=== PATIENT | male | born 1975 | race Caucasian/White ===

== ENCOUNTER 2017-04-11 09:51 | Emergency (ER) | payer OTHER ==
--- NOTE | 2017-04-11 12:01 | DIAGNOSTIC IMAGING REPORT ---
PROCEDURE: XR HAND 3 OR 4 VIEWS - LEFT INDICATION: Trauma. Injury. History of achondroplasia. TECHNIQUE: Four views. COMPARISON: Comparison is made to radiographs of the left hand third finger on 12/13/2014. FINDINGS: Shortening of the phalanges and distal radius/ulna may be a reflection of achondroplasia. Osseous structures and joint spaces are otherwise normal. No evidence of acute process or fracture. IMPRESSION: 1. Negative left hand.
--- NOTE | 2017-04-11 13:55 | DIAGNOSTIC IMAGING REPORT ---
PROCEDURE: XR LUMBAR SPINE 2 OR 3 VIEWS INDICATION: Trauma. Injury. Achondroplasia. TECHNIQUE: Three views. COMPARISON: None. FINDINGS: There are minimal old wedge compression deformities of the L1 and T12 vertebra which may be a reflection of achondroplasia. There are degenerative changes of the lower lumbar facet joints. Osseous structures and disc spaces are otherwise normal. No evidence of an acute process or fracture. IMPRESSION: 1. Negative lumbar spine.
--- NOTE | 2017-04-11 14:00 | DIAGNOSTIC IMAGING REPORT ---
PROCEDURE: XR THORACIC SPINE 3 VIEWS INDICATION: TRAUMA/INJURY TECHNIQUE: Three views. COMPARISON: None. FINDINGS: There is evidence of a multilevel laminectomy from T4-T11 (no change). Osseous structures and disc spaces are otherwise normal. No evidence of an acute process or fracture. IMPRESSION: 1. There is evidence of a multi level laminectomy from T4-T11 (no change). 2. Otherwise negative thoracic spine 3. Findings discussed with Dr. Christian.
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
--- NOTE | 2017-04-11 14:20 | ED ORDER SUMMARY ---
..... Patient: LULÚ VERA OrderSheet [facility] VisitID: [id number] [address] [place] [address] 41y, M Registration Date/Time: 04/11/2017 ORDER SHEET Weight: 63.5 kg (stated) Allergies: No Known Drug Allergy GENERAL ORDERS: Hand 3 or 4V Left Urgent (11:29 04/11/2017 Gage AARON) (Ack 11:31 Ailyn) (11:50 Ailyn) Dress Wounds (11:04/11/2017 Gage AARON) (Ack 11:32 Ailyn) (11:36 MWinterer R.N.) Thoracic Spine 3V Urgent (12:04/11/2017 Gage AARON) (Ack 12:08 Ailyn) (14:04 MWinterer R.N.) Lumbar Spine 2 or 3V Urgent (12:04/11/2017 Gage AARON) (Ack 12:08 Ailyn) (14:04 MWinterer R.N.) MEDICATION ORDERS: Tdap IM 0.5 mL (NOW) (11:04/11/2017 Gage AARON) (11:37 MWinterer R.N.) IV FLUIDS: ORDER SHEET NOTES: [Electronically signed by Laurita Singleton R.N. (14:41 04/11/2017)] [Electronically signed by Sherif Christian MD (18:08 04/11/2017)] [Electronically locked/signed by Laurita Singleton R.N. (14:41 04/11/2017)]
--- NOTE | 2017-04-11 14:20 | ED ORDER SUMMARY ---
..... Patient: LULÚ VREA OrderSheet [facility] VisitID: [id number] [address] [place] [address] 41y, M Registration Date/Time: 04/11/2017 ORDER SHEET Weight: 63.5 kg (stated) Allergies: No Known Drug Allergy GENERAL ORDERS: Hand 3 or 4V Left Urgent (11:29 04/11/2017 Gage AARON) (Ack 11:31 Ailyn) (11:50 Ailyn) Dress Wounds (11:04/11/2017 Gage AARON) (Ack 11:32 Ailyn) (11:36 MWinterer R.N.) Thoracic Spine 3V Urgent (12:04/11/2017 Gage AARON) (Ack 12:08 Ailyn) (14:04 MWinterer R.N.) Lumbar Spine 2 or 3V Urgent (12:04/11/2017 Gage AARON) (Ack 12:08 Ailyn) (14:04 MWinterer R.N.) MEDICATION ORDERS: Tdap IM 0.5 mL (NOW) (11:04/11/2017 Gage AARON) (11:37 MWinterer R.N.) IV FLUIDS: ORDER SHEET NOTES: [Electronically signed by Laurita Singleton R.N. (14:41 04/11/2017)] [Electronically signed by Sherif Christian MD (18:08 04/11/2017)] [Electronically locked/signed by Laurita Singleton R.N. (14:41 04/11/2017)]
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
--- NOTE | 2017-04-11 18:08 | ED DISCHARGE INSTRUCTIONS ---
Patient: LULÚ VERA General Instructions [facility] VisitID: [id number] [address] [place] [address] 41y, M Registration Date/Time: 04/11/2017 Single deep laceration to the lower lip.No foreign body present. Multiple contusions with abrasion to the forehead, nose, lower lip and left hand. Fall from chair and on same level by slipping. Lower leg paresthesia. Tooth avulsion. INSTRUCTIONS Apply ice for 15-20 minutes three times a day for one days. (to left hand.). Protect wound and keep wound area clean. Change dressing twice daily. Keep wounds dry. You may wash wounds briefly, then dry. Apply neosporin twice daily. No strenuous activity. No alcohol. Do not smoke. (Liquid diet for 1 week. Rinse mouth after every meal . No chewing tobacco. Follow up with neurologist if leg numbness persists.). Warnings: HEAD INJURY PRECAUTIONS: An observer must check on the patient every 4 hours for the next 24 hours to confirm that the patient responds as expected, is not confused, has no new weakness or numbness, and has no other problems. TETANUS: You were given a tetanus shot during your visit. Make a note for future reference. GENERAL WARNINGS: Return or contact your physician immediately if your condition worsens or changes unexpectedly, if not improving as expected, or if other problems arise. Your Current Medications: CONTINUE TAKING THE FOLLOWING MEDICATIONS: Benadryl Allergy Oral. Gabapentin Oral. Methocarbamol Oral. PriLOSEC Oral : 10 mg daily. OTC Medications: Acetaminophen (available over the counter): take according to label instructions. Follow-up: Follow up with your doctor in five days. Call for the next available appointment. Follow up with a dentist. Call for the next available appointment. Understanding of the discharge instructions verbalized by patient and parent. ADDITIONAL INFORMATION Mechanical Fall You have had a fall today. It appears that the cause is mechanical. That means that you slipped, tripped or lost your balance. If your fall had been due to fainting or a seizure, further tests would be required. Home Care: Rest today and resume your normal activities when you are feeling back to normal. If you were injured during the fall, follow the advice from your doctor regarding care of your injury. You may use acetaminophen (Tylenol) or ibuprofen (Motrin, Advil) to control pain, unless another pain medicine was prescribed. [NOTE: If you have chronic liver or kidney disease or ever had a stomach ulcer or GI bleeding, talk with your doctor before using these medicines.] Fall Prevention: Was there anything that caused your fall that can be fixed, removed, or replaced? Make your home safe by keeping walkways clear of objects you may trip over. Use non-slip pads under rugs. Do not walk in poorly lit areas. Do not stand on chairs or wobbly ladders. Use caution when reaching overhead or looking upward. This position can cause a loss of balance. Be sure your shoes fit properly, have non-slip bottoms and are in good condition. Be cautious when going up and down curbs, and walking on uneven sidewalks. If your balance is poor, consider using a cane or walker. Stay as active as you can. Balance, flexibility, strength, and endurance all come from exercise. They all play a role in preventing falls. Follow Up with your doctor or as advised by our staff. Get Prompt Medical Attention if any of the following occur: Repeated mechanical falls, or unexplained falls Dizziness, fainting or seizure Severe headache Chest pain or shortness of breath Palpitations (very rapid or very slow or irregular heartbeat) Blood in vomit, stools (black or red color) Weakness of an arm or leg or one side of the face Difficulty with speech or vision Laceration, Lip and Mouth Alaceration is a cut through the skin. When the cut is on the outside of the lip, it may be closed with stitches, surgical tape, or sometimes skin glue. Cuts inside the mouth may be sutured or left open, depending on the size. When stitches are used in the mouth, they are usually the kind that dissolve. Home care The following guidelines will help you care for your laceration at home: Eat soft foods to reduce pain when chewing. If the cut isinsideyour mouth, clean the wound by rinsing your mouth after each meal and at bedtime with a mixture of equal parts water and hydrogen peroxide (do not swallow!). Or, you can use a cotton swab to apply hydrogen peroxide directly onto the cut. Mouth wounds can be painful when eating. You may use a local, [id number] numbing solution for pain relief. If this is not available, you may use any numbing solution for teething babies. You may apply this directly to the sores with a cotton-tip swab or with your finger. If the cut is on theoutsideof the lip and sutures were used, you may shower as usual after the first 24 hours, but do not put your head under water until the sutures are removed. After removing the bandage, wash the area with soap and water. Use a wet cotton swab to loosen and remove any blood or crust that forms. After cleaning, keep the wound clean and dry. Talk with your doctor before applying any antibiotic ointment to the wound. You may apply an adhesive bandage or leave the wound open. If surgical tape was used, keep the area clean and dry. If it becomes wet, blot it dry with a towel. Talk with your doctor before applying any antibiotic ointment to the wound. The surgical tape closures will usually fall off after about 5 days. If skin glue was used, do not scratch, rub, or pick at the adhesive film. Do not place tape directly over the film.Do not apply liquid, ointment, or creams to the wound while the film is inplace.Do not clean the wound with peroxide and do not apply ointment. Avoid activities that cause heavy sweating until the film has fallen off. Protect the wound from prolonged exposure to sunlight or tanning lamps. You may shower as usual but do not soak the wound in water (no swimming). If you were given an antibiotic to prevent infection, do not stop taking this medication until you have finished the prescribed course or the doctor tells you to stop. The doctor may prescribe medications for pain. Follow the doctor's instructions for taking these medications.If you have chronic liver or kidney disease or ever had a stomach ulcer or GI bleeding, talk with your doctor before using these medicines. Follow-up care Follow up with your health care provider. Cuts in and around the mouth heal in about five days. However, even with proper treatment, a wound infection sometimes occurs. Therefore, check the wound daily for the warning signs listed below. Stitches should not be left in the face for more thanfivedays; otherwise, permanent stitch whalen may form. Unless told otherwise, you may remove surgical tape closures yourself afterfive days, if they have not already fallen off. Ifskin glue was used, the film will fall off by itself in 510 days. When to seek medical care Get prompt medical attention if any of these occur: Increasing pain in the wound Fever of 100.4F (38C) or higher, or as directed by your health care provider Redness, swelling, or pus coming from the wound If sutures come apart or fall out or if surgical tape falls off before three days If the wound edges reopen Bleeding not controlled by direct pressure Contusion,Soft Tissue You have a CONTUSION, which is a bruise with swelling and some bleeding under the skin. There are no broken bones. This injury takes a few days to a few weeks to heal. Home Care: 1) Keep the injured part elevated to reduce pain and swelling. This is especially important during the first 48 hours. 2) Make an ice pack (ice cubes in a plastic bag, wrapped in a towel) and apply for 20 minutes every 1-2 hours the first day. Continue this 3-4 times a day until the pain and swelling goes away. 3) You may use acetaminophen (Tylenol) or ibuprofen (Motrin, Advil) to control pain, unless another pain medicine was prescribed. [ NOTE : If you have chronic liver or kidney disease or ever had a stomach ulcer or GI bleeding, talk with your doctor before using these medicines.] Follow Up with your doctor or this facility if you are not improving within the next THREE days. [NOTE: If X-rays were taken, they will be reviewed by a radiologist. You will be notified of any new findings that may affect your care.] Get Prompt Medical Attention if any of the following occur: -- Pain or swelling increases -- Injured arm or leg becomes cold, blue, numb or tingly -- Redness, warmth or drainage from the skin Facial Contusion (No Wake-Up) A facial contusion is a bruise with swelling and sometimes bleeding under the skin. The swelling should start to go down within two days. Although there may be no signs of a serious injury at this time, symptoms may appear later which could be a sign of a more serious problem. Therefore, watch for the warning signs below. Home care The following guidelines will help you care for your injury at home: If you have swelling of the face, apply an ice pack (ice cubes in a plastic bag, wrapped in a towel) for 20 minutes every 12 hours until the swelling starts to go down. If you have scrapes or cuts on your face, clean them daily with soap and water. Apply an antibiotic ointment or cream for the first few days to prevent infection. You may use acetaminophen or ibuprofen to control pain, unless another pain medicine was prescribed.If you have chronic liver or kidney disease or ever had a stomach ulcer or GI bleeding, talk with your doctor before using these medicines. Do not use ibuprofen in children under six months of age. For the next 24 hours: Do not take alcohol, sedatives or medicines that make you sleepy. Do not drive or operate machinery. Avoid strenuous activities. No lifting or straining. If you have had any symptoms of aconcussiontoday (nausea, vomiting, dizziness, confusion, headache, memory loss or if you were knocked out), do not return to sports or any activity that could result in another head injury until all symptoms are gone and you have been cleared by your doctor. A second head injury before fully recovering from the first one can lead to serious brain injury. Follow-up care Follow up with your doctor in one week or as directed. Note: Any X-rays or CT scans taken will be reviewed by a radiologist. You will be notified of any new findings that may affect your care. When to seek medical care Get prompt medical attention if any of the following occur: Repeated vomiting Severe or worsening headache or dizziness Unusual drowsiness, or unable to awaken as usual Confusion or change in behavior or speech, memory loss, blurred vision Convulsion (seizure) Increasing scalp or face swelling Redness, warmth or pus from the swollen area Fluid drainage or bleeding from the nose or ears Fever of 100.4F (38C) or higher, or as directed by your health care provider Increasing jaw pain with chewing or increasing pain in the sinuses Nose looks crooked or cannot breathe through your nose after swelling goes down Bandage Change If the bandage becomes wet or dirty, replace it. Otherwise, leave it in place for the first 24 hours. Then once a day: After removing the bandage, wash the area with soap and water. Use a wet cotton swab to loosen and remove any blood or crust that forms on the wound. After cleaning, apply a thin layer of antibiotic ointment or cream. Reapply the bandage. You may shower as usual after the first 24 hours. If the bandage is on an arm or leg, cover it with a plastic bag rubber banded at both ends before showering. No tub baths or swimming until the bandage is removed and the wound healed (at least 7 days). Head Injury, No Wake-Up (Adult) You have had a head injury. It does not appear serious at this time. Symptoms of a more serious problem (concussion, bruising, or bleeding in the brain) may appear later. Therefore, watch for the WARNING SIGNS listed below. Home Care: Your healthcare provider will tell you whether its okay to drive. If so, you can drive yourself home. For the next day or so, be careful when driving or using heavy machinery until you are sure you have no delayed symptoms. During the next 24 hours someone must stay with you to check for the signs below. It is not necessary to stay awake or be awakened during the night. If you have swelling of the face or scalp, apply an ice pack (ice cubes in a plastic bag, wrapped in a towel) for 20 minutes. Do this every 1-2 hours until the swelling starts to go down. Do not use aspirin or ibuprofen (Motrin, Advil) after a head injury.You may use acetaminophen (Tylenol)to control pain, unless another pain medicine was prescribed. [NOTE: If you have chronic liver or kidney disease or ever had a stomach ulcer or GI bleeding, talk with your doctor before using these medicines.] For the next 24 hours: Do not take alcohol, sedatives or medicines that make you sleepy. Avoid strenuous activities. No lifting or straining. If you have had any symptoms of a concussion today (nausea, vomiting, dizziness, confusion, headache, memory loss or if you were knocked out), do not return to sports or any activity that could result in another head injury until all symptoms are gone and you have been cleared by your doctor. A second head injury before fully recovering from the first one can lead to serious brain injury. Follow Up with your doctor if symptoms are not improving after 24 hours, or as directed. [NOTE: A radiologist will review any X-rays or CT scans that were taken. We will notify you of any new findings that may affect your care.] Get Prompt Medical Attention if any of the followingWARNING SIGNS occur: Repeated vomiting Severe or worsening headache or dizziness Unusual drowsiness, or unable to awaken as usual Confusion or change in behavior or speech, memory loss, blurred vision Convulsion (seizure) Increasing scalp or face swelling Redness, warmth or pus from the swollen area Fluid drainage or bleeding from the nose or ears You have been given the following additional information: Fall, Mechanical Laceration, Lip/Mouth Contusion, Soft Tissue Facial Contusion, No Wakeup Dressing Change HEAD INJURY, No Wake-Up (Adult) No strenuous activity. (Electronically signed by Sherif Christian MD 04/11/2017 18:08)
--- NOTE | 2017-04-11 18:08 | ED MED RECONCILIATION SUMMARY ---
Patient: LULÚ VERA Medication Reconciliation Report [facility] VisitID: [id number] [address] [place] [address] 41y, M Registration Date/Time: 04/11/2017 Weight: 63.5 kg Height/Length: 53 in. BMI: 35.0 ALLERGIES: No Known Drug Allergy The patient's Home Medications are listed below: CONTINUE TAKING THE FOLLOWING MEDICATIONS: Benadryl Allergy Oral Gabapentin Oral Methocarbamol Oral PriLOSEC Oral 10 mg, daily The source(s) of the original Home Medication information: patient The following Medications were given to the patient in the Emergency Department: TDAP [IM] IM 0.5 mL, administered: 04/11/2017 11:37:00 AM The following Medications were prescribed to the patient: Acetaminophen (available over the counter): take according to label instructions. -- Sherif Christian MD
--- NOTE | 2017-04-11 18:08 | ED MAR SUMMARY ---
..... Medication Administration Record [facility] [address] [place] [address] Patient: LULÚ VERA Visit ID: [id number] 41y, M Weight: 63.5 kg Height/Length: 53 in BMI: 35 ALLERGIES: No Known Drug Allergy Given 11:37 04/11/2017 Kathy Ladd R.N. Medication Administered: TDAP [IM], Dose: 0.5 mL IM. Medication Ordered: Tdap IM 0.5 mL (NOW).
--- NOTE | 2017-04-11 18:08 | ED MED RECONCILIATION SUMMARY ---
Patient: LULÚ VERA Medication Reconciliation Report [facility] VisitID: [id number] [address] [place] [address] 41y, M Registration Date/Time: 04/11/2017 Weight: 63.5 kg Height/Length: 53 in. BMI: 35.0 ALLERGIES: No Known Drug Allergy The patient's Home Medications are listed below: CONTINUE TAKING THE FOLLOWING MEDICATIONS: Benadryl Allergy Oral Gabapentin Oral Methocarbamol Oral PriLOSEC Oral 10 mg, daily The source(s) of the original Home Medication information: patient The following Medications were given to the patient in the Emergency Department: TDAP [IM] IM 0.5 mL, administered: 04/11/2017 11:37:00 AM The following Medications were prescribed to the patient: Acetaminophen (available over the counter): take according to label instructions. -- Sherif Christian MD
--- NOTE | 2017-04-11 18:08 | ED MAR SUMMARY ---
..... Medication Administration Record [facility] [address] [place] [address] Patient: LULÚ VERA Visit ID: [id number] 41y, M Weight: 63.5 kg Height/Length: 53 in BMI: 35 ALLERGIES: No Known Drug Allergy Given 11:37 04/11/2017 Kathy Ladd R.N. Medication Administered: TDAP [IM], Dose: 0.5 mL IM. Medication Ordered: Tdap IM 0.5 mL (NOW).
== END 2017-04-11 14:30 | disposition home or self-care (01) ==
LOC: ED SRH 09:51
DX: S01.511A Laceration without foreign body of lip, initial encounter (principal); S00.83XA Contusion of other part of head, initial encounter; S00.33XA Contusion of nose, initial encounter; S00.531A Contusion of lip, initial encounter; S60.222A Contusion of left hand, initial encounter; S03.2XXA Dislocation of tooth, initial encounter; W07.XXXA Fall from chair, initial encounter; R20.9 Unspecified disturbances of skin sensation